=== PATIENT | female | born 1955 | race Caucasian/White ===

== ENCOUNTER 2017-10-16 08:09 | Emergency (ER) | payer BC ==
[2017-10-16 08:16] VITALS: RESP 16
--- NOTE | 2017-10-16 08:21 | CPEKG ---
Heart Rate: 98 RR Interval: 612 P-R Interval: 156 QRSD Interval: 92 QT Interval: 368 QTC Interval: 470 P Rawlings: 54 QRS Rawlings: 27 T Wave Rawlings: 72 EKG Severity - NORMAL ECG - EKG Impression: SINUS RHYTHM Electronically Signed By: Usama Garrett 18-Oct-2017 07:04:30
--- NOTE | 2017-10-16 08:33 | EDPHY ---
H & P Stated Complaint: opiate withdrawal Time Seen by Provider: 10/16/17 08:12 HPI/ROS: This patient presents with opiate withdrawal. She reports that 10 half year history of using prescribed opiates for various pain conditions. She wants to be off of opiates. Her most recent opiate had been hydrocodone 10 mg 4 times a day. Her last dose was Monday. She also had some tramadol and noticing onset of withdrawal symptoms-agitation racing heart diaphoresis she took some tramadol starting , 4 days prior to arrival to help manage some of her withdrawal symptoms. Her last dose of tramadol was yesterday. She now complains of a rapid heart rate diaphoresis, tremor, agitation and some nausea. She had loose stools couple days ago but none since. And she complains of anxiety. She lives in [facility], but is visiting her daughter here this week and was recently diagnosed as hypothyroid as well as diabetic. She has not taken her levothyroxine over the past handful of days due to concern over her other symptoms of withdrawal. She does recall the name of the diabetic medication that she takes. ROS: No fevers chills. HEENT: Some coryza over the same week. No sinus pain. No sore throat. Pulmonary: No coughing or shortness of breath. Cardiovascular: No chest pain. No lightheadedness. GI: As per HPI. No abdominal pain. : No complaints new line integumentary: No rash. Psychiatric: Anxious. 10 point ROS is otherwise negative. 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 Most recently she fractured her low left leg urine half ago and has been on opiates since then. Hypothyroidism [id number] diabetes Hx Asthma: No Hx Chronic Respiratory Disease: No Hx Diabetes: Yes Hx Cardiac Disease: No Hx Renal Disease: No Hx Cirrhosis: No Hx Alcoholism: No Hx HIV/AIDS: No Hx Splenectomy or Spleen Trauma: No Other PMH: diabetes. hypothyroid - Family History Significant Family History: No pertinent family hx - Social History Smoking Status: Never smoked Alcohol Use: Occasionally (None in the last week) Drug Use: None Additional Social History: Visiting her daughter this week. She lives in [facility] - Physical Exam Exam: Pulse rate right around 100. Hypertensive to 194/108. Other vitals normal General Appearance: Alert, no distress. Eyes: Pupils equal and round no pallor or injection. ENT, Mouth: Mucous membranes moist. Respiratory: There are no retractions, lungs are clear to auscultation. Cardiovascular: Tachycardic with no murmur gallop or rub Gastrointestinal: Abdomen is soft and nontender, no masses, bowel sounds normal. Neurological: GCS 15 with no focal deficits. Skin: Warm and dry, no rashes. Musculoskeletal: Neck is supple nontender. Extremities are symmetrical, full range of motion. Psychiatric: Patient is anxious and intermittently tearful. DIFFERENTIAL DIAGNOSIS: After history and physical exam differential diagnosis was considered for opiate withdrawal, thyroid disease, metabolic disarray, anxiety Constitutional: Initial Vital Signs Temperature (C) 36.8 C 10/16/17 08:14 Heart Rate 99 10/16/17 08:14 Respiratory Rate 16 10/16/17 08:14 Blood Pressure 194/108 H 10/16/17 08:14 O2 Sat (%) 97 10/16/17 08:14 O2 Delivery Mode Room Air Allergies/Adverse Reactions: No Known Allergies Allergy (Unverified 10/16/17 08:18) Home Medications: Medication Instructions Recorded Blood Sugar Pill 10/16/17 Hyoscyamine Sulfate [Levsin, 0.125 - 0.25 mg SL Q6 PRN #20 tab 10/16/17 Hyomax-Sl 0.125 mg (*)] Levothyroxine 10/16/17 Ondansetron Odt [Zofran Odt] 4 - 8 mg PO Q4PRN PRN #4 tab 10/16/17 Prozac 20 MG (*) 10/16/17 SIMVASTATIN 10/16/17 clonIDINE [Catapres (*)] 0.1 - 0.2 mg PO BID PRN #10 tab 10/16/17 Medical Decision Making - Diagnostics EKG Interpretation: 12 lead EKG performed shortly after arrival indication racing heart rule out dysrhythmia 12 lead EKG at 8:19 a.m. Reveals sinus rhythm at 99 Intervals: Normal throughout [place]: Normal throughout ST segments: Normal throughout Overall assessment normal EKG ED Course/Re-evaluation: IV is established Labs drawn Clonidine 0.1 mg p.o. For a COWS (quantitative opiate w/d) score of 9 At 9:20 a.m. The patient has improved with a heart rate down in the 70s. Her hypertension is also diminished to 150s over 70s from initial diastolic of 112. She states subjective improvement as well. She experience some nausea treated with Zofran with success. She complains of mild abdominal cramping at this time to be treated with Levsin. Will plan to send her home with clonidine for withdrawal symptoms as needed. Will provide follow up with outpatient physician on-call. I answered all the patient's questions prior to discharge. She understands need to return should she develop any significant worsening despite the treatment plan. - Data Points Laboratory Results: Laboratory Results 10/16/17 08:30 10/16/17 08:30 10/16/17 10/16/17 08:30 08:30 WBC 10.67 10^3/uL H 10^3/uL (3.80-9.50) RBC 5.52 10^6/uL H 10^6/uL (4.18-5.33) Hgb 15.9 g/dL g/dL (12.6-16.3) Hct 44.8 % % (38.0-47.0) MCV 81.2 fL L fL (81.5-99.8) MCH 28.8 pg pg (27.9-34.1) MCHC 35.5 g/dL g/dL (32.4-36.7) RDW 12.5 % % (11.5-15.2) Plt Count 264 10^3/uL 10^3/uL (150-400) MPV 10.9 fL fL (8.7-11.7) Neut % (Auto) 80.8 % H % (39.3-74.2) Lymph % (Auto) 14.9 % L % (15.0-45.0) [place] % (Auto) 3.2 % L % (4.5-13.0) Eos % (Auto) 0.1 % L % (0.6-7.6) Baso % (Auto) 0.5 % % (0.3-1.7) Nucleat RBC Rel Count 0.0 % % (0.0-0.2) Absolute Neuts (auto) 8.63 10^3/uL H 10^3/uL (1.70-6.50) Absolute Lymphs (auto) 1.59 10^3/uL 10^3/uL (1.00-3.00) Absolute Monos (auto) 0.34 10^3/uL 10^3/uL (0.30-0.80) Absolute Eos (auto) 0.01 10^3/uL L 10^3/uL (0.03-0.40) Absolute Basos (auto) 0.05 10^3/uL 10^3/uL (0.02-0.10) Absolute Nucleated RBC 0.00 10^3/uL 10^3/uL (0-0.01) Immature Gran % 0.5 % % (0.0-1.1) Immature Gran # 0.05 10^3/uL 10^3/uL (0.00-0.10) Sodium 142 mEq/L mEq/L (135-145) Potassium 4.0 mEq/L mEq/L (3.5-5.2) Chloride 103 mEq/L mEq/L (97-110) Carbon Dioxide 18 mEq/l L mEq/l (22-31) Anion Gap 21 mEq/L H mEq/L (8-16) BUN 13 mg/dL mg/dL (7-23) Creatinine 0.7 mg/dL mg/dL (0.6-1.0) Estimated GFR > 60 Glucose 142 mg/dL H mg/dL (70-100) Calcium 10.1 mg/dL mg/dL (8.5-10.4) TSH Pending Medications Given: Discontinued Medications Clonidine (Catapres) 0.1 mg PO EDNOW ONE Stop: 10/16/17 08:30 Last Admin: 10/16/17 08:36 Dose: 0.1 mg Ondansetron HCl (Zofran) 4 mg IVP EDNOW ONE Stop: 10/16/17 08:56 Last Admin: 10/16/17 08:59 Dose: 4 mg Departure - Departure Disposition: Home, Routine, Self-Care Clinical Impression: Opiate withdrawal Condition: Good Instructions: Anxiety (ED) Additional Instructions: Diagnosis: Opiate withdrawal Plan: Stop opiates Ibuprofen for pain as needed Clonidine 0.1 mg to 0.2 mg 2 times a day as needed for opiate withdrawal symptoms Zofran if needed for nausea Levsin if needed for abdominal cramps Call primary physician listed below to arrange for outpatient follow-up for recheck sometime the next 3-5 days. Return for any significant worsening despite the treatment plan. Referrals: Jacqueline Mcallister MD [Medical Doctor] - As per Instructions Prescriptions: clonIDINE [Catapres (*)] 0.1 - 0.2 mg PO BID PRN #10 tab PRN Reason: opiate w/d Hyoscyamine Sulfate [Levsin, Hyomax-Sl 0.125 mg (*)] 0.125 - 0.25 mg SL Q6 PRN # 20 tab PRN Reason: abdominal cramping Ondansetron Odt [Zofran Odt] 4 - 8 mg PO Q4PRN PRN #4 tab PRN Reason: Vomiting
[2017-10-16 08:43] LABS: PLATELET COUNT 264 10^3/uL (150-400)
[2017-10-16] MEDS ORDERED: ONDANSETRON 4 MG/2 ML VIAL IVP ONE (08:55)
[2017-10-16] MEDS ORDERED: HYOSCYAMINE SULFATE 0.125 MG TAB PO ONE (09:19)
[2017-10-16 09:38] VITALS: BP 156/85; PULSE 78; TEMP 98.4; O2SAT 95
== END 2017-10-16 09:38 | disposition home or self-care (01) ==
LOC: CED 08:09
DX: F11.23 Opioid dependence with withdrawal (principal); E11.9 Type 2 diabetes mellitus without complications
CPT/HCPCS: 80048-PO; 84443-PO; 85025-PO; 96374; J2405